=== PATIENT | female | born 1995 | race Caucasian/White ===

== ENCOUNTER 2022-10-17 11:58 | Emergency (ER) | payer OTHER ==
[~2022-10-17] VITALS: Ht 167.6 cm; Wt 68.0 kg
[2022-10-17 12:22] VITALS: BP 123/79
[2022-10-17] MEDS ORDERED: ACETAMINOPHEN 325MG TABLET PO STA (13:31)
[2022-10-17 14:20] LABS: HEMATOCRIT. 39.6 % (36.0-48.0); MEAN CORPUSCULAR HEMOGLOBIN 31.6 pg (28.0-32.0); MEAN CORPUSCULAR VOLUME 89.4 fL (81.0-99.0); MEAN PLATELET VOLUME 8.7 fl (7.4-10.4); PLATELET 246 x1000/uL (130-400); RED BLOOD CELL COUNT 4.43 mill/uL (4.2-5.4); RED CELL DISTRIBUTION WIDTH 13.2 % (11.6-14.6)
[2022-10-17 14:32] LABS: CHLORIDE 106 mEq/L (98-107)
[2022-10-17 15:03] LABS: CLARITY URINE CLOUDY (CLEAR); COLOR URINE DARK YELLOW (YELLOW); KETONES URINE TRACE (NEGATIVE); LEUKOCYTE ESTERASE URINE TRACE (NEGATIVE); NITRITE URINE POSITIVE (NEGATIVE); OCCULT BLOOD URINE NEGATIVE (NEGATIVE); PH URINE 6.5 (4.5-8.0); PROTEIN URINE 1+ (NEGATIVE); SPECIFIC GRAVITY URINE 1.034 (1.005-1.030)
[2022-10-17] MEDS ORDERED: LIDOCAINE HCL/PF 1% 10 MG/ML 5ML VIAL INFIL ONE (15:45)
[2022-10-17] MEDS ORDERED: CEFTRIAXONE SODIUM 1 G/VIAL IM ONE (15:45)
[2022-10-17] MEDS ORDERED: IBUP-2029 PO (15:53)
[2022-10-17] MEDS ORDERED: SULF1TAB48 MT (15:53)
[2022-10-17 16:52] LABS: PLATELET ESTIMATE NORMAL
== END 2022-10-17 16:10 | disposition home or self-care (01) ==
LOC: ER 11:58
DX: N39.0 Urinary tract infection, site not specified (principal); J02.9 Acute pharyngitis, unspecified; H92.09 Otalgia, unspecified ear; Z20.822 Contact with and (suspected) exposure to COVID-19
CPT/HCPCS: 36415; 80048; 81003; 85025; 87086; 87186; 87426; 87430; 96372; 99283; C9803; J0696; J3490

== ENCOUNTER 2023-01-27 14:34 | Emergency (ER) | payer OTHER ==
[~2023-01-27] VITALS: Ht 167.6 cm; Wt 73.0 kg
[~2023-01-27 14:34] MED LIST: IBUP-2029 PO; SULF1TAB48 MT
[2023-01-27 14:54] VITALS: TEMP 98.2; O2SAT 98
[2023-01-27] MEDS ORDERED: IBUPROFEN 600MG TABLET PO ONE (15:00)
[2023-01-27] MEDS ORDERED: IBUP-2029 MT (17:26)
[2023-01-27 17:29] VITALS: BP 131/94; PULSE 102; RESP 16
[2023-01-27] MEDS ORDERED: IBUPROFEN 600MG TABLET PO NR (17:30)
== END 2023-01-27 17:39 | disposition home or self-care (01) ==
LOC: ER 15:05
DX: M25.532 Pain in left wrist (principal)
CPT/HCPCS: 73110; 99283

== ENCOUNTER 2023-06-07 08:15 | Emergency (ER) | payer OTHER ==
[~2023-06-07] VITALS: Ht 170.2 cm; Wt 74.0 kg
[~2023-06-07 08:15] MED LIST changes: +IBUP-2029 MT
[2023-06-07 08:24] VITALS: O2SAT 99
[2023-06-07] MEDS ORDERED: LIDOCAINE 5% PATCH TOP SCH (11:00)
[2023-06-07] MEDS ORDERED: CYCLOBENZAPRINE 10MG TABLET PO ONE (11:00)
[2023-06-07] MEDS ORDERED: KETOROLAC 60MG/2ML VIAL IM ONE (11:00)
[2023-06-07] MEDS ORDERED: LIDO700A30 TP (13:42)
[2023-06-07] MEDS ORDERED: IBUP-2029 PO (13:42)
[2023-06-07 14:28] VITALS: BP 110/78; PULSE 67; RESP 18; TEMP 98.5
== END 2023-06-07 14:30 | disposition home or self-care (01) ==
LOC: ER 08:15
DX: M62.838 Other muscle spasm (principal); M54.2 Cervicalgia; F19.90 Other psychoactive substance use, unspecified, uncomplicated
CPT/HCPCS: 99282